=== PATIENT | male | born 1975 | race Caucasian/White ===

== ENCOUNTER → 2018-03-29 | Outpatient (CLI) | payer MEDICAID | LOC: CIMAGING 10:49 | PROVIDERS: ATTEND Family Medicine | DX: M43.04 Spondylolysis, thoracic region (principal); M50.323 Other cervical disc degeneration at C6-C7 level | CPT/HCPCS: 72040-PO ==

== ENCOUNTER → 2018-08-27 | Outpatient (CLI) | payer OTHER, MEDICAID | LOC: FLAB 10:42 | PROVIDERS: ATTEND Family Medicine | DX: M25.511 Pain in right shoulder (principal); M12.811 Other specific arthropathies, not elsewhere classified, right shoulder; F31.12 Bipolar disorder, current episode manic without psychotic features, moderate; F10.10 Alcohol abuse, uncomplicated ==